=== PATIENT | male | born 1990 ===

== ENCOUNTER 2018-10-13 10:17 | Emergency (ER) | payer OTHER ==
[2018-10-13 10:22] VITALS: BMI 24.3
[2018-10-13 10:24] VITALS: PULSE 66
[2018-10-13] MEDS ORDERED: Sodium Chloride 0.9% 1,000 ML IV STA (11:11)
--- NOTE | 2018-10-13 11:13 | ED PDOC ---
HPI: Abdomen Time Seen by Provider: 10/13/18 11:02 Chief Complaint (Nursing): Abdominal Pain Chief Complaint (Provider): abdominal pain, nausea, diarrhea History Per: Patient, Chief Of Field Operations (Mir from [facility]) Onset/Duration Of Symptoms: Days (2) Severity: Moderate Location Of Pain/Discomfort: Epigastric, Periumbilical Quality Of Discomfort: Sharp Associated Symptoms: Nausea, Diarrhea, Loss Of Appetite. denies: Vomiting Exacerbating Factors: None Alleviating Factors: None Additional Complaint(s): 28yo male states in [place] several months ago had appendicitis and was given antibiotics for several days told "area would drain itself" denies any procedure, drain placement or surgery. Then went to [place] and did not followup. Now in [place] and c/o upper abd pain w nausea and loose stools x2 days. Denies fever, RLQ pain, melena or weakness. Past Medical History Reviewed: Historical Data, Nursing Documentation, Vital Signs Vital Signs: Last Vital Signs Temp 97.7 F 10/13/18 10:23 Pulse 66 10/13/18 10:23 Resp 17 10/13/18 10:23 BP 141/76 10/13/18 10:23 Pulse Ox 98 10/13/18 10:23 - Medical History Other PMH: takes no daily medications, hx ?appy as per HPI - Family History Family History: States: Unknown Family Hx - Social History Current smoker - smoking cessation education provided: No Alcohol: Occasional - Home Medications Home Medications: Ambulatory Orders Medication Instructions Recorded Ranitidine HCl [Zantac] 150 mg PO BID #20 tablet 10/13/18 - Allergies Allergies/Adverse Reactions: Allergies Allergy/AdvReac Type Severity Reaction Status Date / Time No Known Allergies Allergy Verified 10/13/18 10:40 Review of Systems ROS Statement: Except As Marked, All Systems Reviewed And Found Negative Constitutional: Negative for: Fever Cardiovascular: Negative for: Chest Pain Gastrointestinal: Positive for: Nausea, Abdominal Pain. Negative for: Vomiting, Diarrhea Genitourinary Male: Negative for: Dysuria Musculoskeletal: Negative for: Neck Pain Neurological: Negative for: Weakness, Numbness Psych: Negative for: Suicidal ideation Physical Exam - Reviewed Nursing Documentation Reviewed: Yes Vital Signs Reviewed: Yes - Physical Exam Appears: Positive for: Non-toxic Head Exam: Positive for: ATRAUMATIC, NORMAL INSPECTION, NORMOCEPHALIC Skin: Positive for: Normal Color, Warm, DRY Eye Exam: Positive for: EOMI, Normal appearance, PERRL ENT: Positive for: Normal ENT Inspection Neck: Positive for: Normal, Painless ROM Cardiovascular/Chest: Positive for: Regular Rate, Rhythm Respiratory: Positive for: CNT, Normal Breath Sounds Pulses-Radial (L): 2+ Pulses-Radial (R): 2+ Gastrointestinal/Abdominal: Positive for: Soft, Tenderness (+mild epigastric tenderness no RLQ tenderness). Negative for: Guarding, Rebound Back: Positive for: Normal Inspection Extremity: Positive for: Normal ROM. Negative for: Swelling Neurologic/Psych: Positive for: Alert, Oriented. Negative for: Motor/Sensory Deficits - Laboratory Results Result Diagrams: 10/13/18 11:20 10/13/18 11:20 - ECG O2 Sat by Pulse Oximetry: 98 Medical Decision Making Medical Decision Making: check labs and CT abd pelv. ?history of appendicitis several months ago but nonoperative, via photographers' model stated had ?abscess but treatment course seems substandard Accession No. 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 COMPARISON: No prior study available for comparison. TECHNIQUE: Contiguous helical/transaxial sections of the abdomen pelvis performed in standard fashion following intravenous injection of approximately 98 cc of Omnipaque 300 contrast material. Additional 2D sagittal and coronal reformats generated. Radiation dose: Total exam DLP = 319.69 mGy-cm. This CT exam was performed using one or more of the following dose reduction techniques: Automated exposure control, adjustment of the mA and/or kV according to patient size, and/or use of iterative reconstruction technique. FINDINGS: LOWER THORAX: Lung bases clear. No infiltrate effusion or basilar pneumothorax. LIVER: Liver is upper limits of normal measuring nearly 19 cm in CC dimension. Mild diffuse fatty hepatic infiltration felt be present. No. There is a vague small approximately 14 mm x 9.5 mm elliptical shaped area low attenuation inferior aspect right lobe liver best seen on axial series 3, image number [id number]. This could represent a small hemangioma. Follow-up CT scan at interval could be performed to assess stability.. Portal and splenic veins are opacified. GALLBLADDER AND BILE DUCTS: Gallbladder is physiologically distended. No evidence of intraluminal gallbladder calculi. PANCREAS: Unremarkable. No gross lesion or ductal dilatation. SPLEEN: Spleen exhibits normal size and attenuation pattern without mass collection or calcification. ADRENALS: No adrenal lesions. KIDNEYS AND URETERS: Kidneys demonstrate symmetric nephrograms. No evidence of nephrolithiasis or hydronephrosis. VASCULATURE: Unremarkable. No aortic aneurysm. No aortic atherosclerotic calcification or mural plaque present. BOWEL: Evaluation of the bowel is limited due to the lack of oral contrast material. Stomach is incompletely distended which is felt to account for thick-walled appearance however the possibility of a gastritis not excluded. Visualized loops of small bowel exhibit normal contour and caliber. No evidence of acute mechanical small bowel obstruction. Redundant sigmoid colon is distended with air. APPENDIX: There is a small appendicolith within the lumen of the appendix however no evidence to suggest acute appendicitis. PERITONEUM: Unremarkable. No free fluid. No free air. LYMPH NODES: Unremarkable. No enlarged lymph nodes. BLADDER: Urinary bladder is physiologically distended. No evidence of intraluminal urinary bladder calculi. REPRODUCTIVE: Prostate gland and seminal vesicles grossly unremarkable BONES: Very minor multilevel degenerative spondylosis of the lower thoracic and lumbar spine. There are no acute compression fractures nor retropulsed fragments. OTHER FINDINGS: None. IMPRESSION: Borderline hepatomegaly. Mild fatty hepatic infiltration. Vague area low attenuation inferior aspect right lobe liver for which follow-up CT scan recommended at interval to assess stability. This focus is too small to characterize though could represent small hemangioma. Small appendicoliths however no definitive radiographic evidence of acute appendicitis results d/w patient in [place] follow[place] outpatient clinic for additional liver imaging Rx zantac for symptoms Disposition - Clinical Impression Clinical Impression: Abdominal pain, Enlarged liver - Patient ED Disposition Is Patient to be Admitted: No Counseled Patient/Family Regarding: Studies Performed, Diagnosis, Need For Followup, Rx Given - Disposition Referrals: [facility] [Outside] Disposition: Routine/Home Disposition Time: 14:55 Condition: STABLE Additional Instructions: Followup with clinic for further testing on your liver. Return to ER for any worse or new symptoms. Prescriptions: Ranitidine HCl [Zantac] 150 mg PO BID #20 tablet Instructions: Acute Abdomen (Belly Pain), Adult (DC) Forms: [employer] (Jordanian) Print Language: NEPALESE
[2018-10-13 11:31] LABS: BASO # 0.1 K/uL (0.0-0.2); BASO % 1.2 % (0.0-2.0); EOS # 0.1 K/uL (0.0-0.7); HEMOGLOBIN 15.4 g/dL (12.0-18.0); LYMPH # 1.3 K/uL (1.0-4.3); LYMPH % 17.2 % (20.0-40.0); MEAN CELL VOLUME 88.5 fl (80.0-94.0); MEAN CORPUSCULAR HEMOGLOBIN 28.8 pg (27.0-31.0); MEAN CORPUSCULAR HGB CONC 32.5 g/dL (33.0-37.0); MEAN PLATELET VOLUME 9.3 fl (7.2-11.7); MONO # 0.6 K/uL (0.0-0.8); MONO % 8.4 % (0.0-10.0); NEUT # 5.5 K/uL (1.8-7.0); NEUT % 72.2 % (50.0-75.0); NRBC % 0.1 % (0.0-0.0); RBC 5.34 Mil/uL (4.40-5.90); RED CELL DISTRIBUTION WIDTH 14.9 % (11.5-14.5); WHITE BLOOD COUNT 7.6 K/uL (4.8-10.8)
[2018-10-13 11:37] LABS: ALB/GLOB RATIO 1.2 (1.0-2.1); ALBUMIN 4.8 g/dL (3.5-5.0); ALT/SGPT 35 U/L (21-72); AST/SGOT 24 U/L (17-59); BLOOD UREA NITROGEN 17 mg/dl (9-20); CALCIUM 9.3 mg/dL (8.4-10.2); GFR NON-AFRICAN AMERICAN > 60
[2018-10-13 11:41] LABS: URINE BILIRUBIN NEGATIVE (NEGATIVE); URINE BLOOD SMALL (NEGATIVE); URINE CLARITY CLEAR (Clear); URINE COLOR YELLOW (YELLOW); URINE GLUCOSE (UA) NEG (NEGATIVE); URINE LEUKOCYTE ESTERASE NEG Leu/uL (Negative); URINE PROTEIN NEGATIVE (NEGATIVE); URINE UROBILINOGEN 0.2-1.0 mg/dL (0.2-1.0)
[2018-10-13] MEDS ORDERED: Iohexol 300 100 ML IJ ONE (11:54)
[2018-10-13] MEDS ORDERED: Sodium Chloride 0.9% 50 ML IV ONE (11:54)
--- NOTE | 2018-10-13 14:48 | CT ---
Date of service: 10/13/2018 PROCEDURE: CT Abdomen and Pelvis HISTORY: History of non operative appendicitis 3 months ago narrow upper abdominal pain. COMPARISON: No prior study available for comparison. TECHNIQUE: Contiguous helical/transaxial sections of the abdomen pelvis performed in standard fashion following intravenous injection of approximately 98 cc of Omnipaque 300 contrast material. Additional 2D sagittal and coronal reformats generated. Radiation dose: Total exam DLP = 319.69 mGy-cm. This CT exam was performed using one or more of the following dose reduction techniques: Automated exposure control, adjustment of the mA and/or kV according to patient size, and/or use of iterative reconstruction technique. FINDINGS: LOWER THORAX: Lung bases clear. No infiltrate effusion or basilar pneumothorax. LIVER: Liver is upper limits of normal measuring nearly 19 cm in CC dimension. Mild diffuse fatty hepatic infiltration felt be present. No. There is a vague small approximately 14 mm x 9.5 mm elliptical shaped area low attenuation inferior aspect right lobe liver best seen on axial series 3, image number [id number]. This could represent a small hemangioma. Follow-up CT scan at interval could be performed to assess stability.. Portal and splenic veins are opacified. GALLBLADDER AND BILE DUCTS: Gallbladder is physiologically distended. No evidence of intraluminal gallbladder calculi. PANCREAS: Unremarkable. No gross lesion or ductal dilatation. SPLEEN: Spleen exhibits normal size and attenuation pattern without mass collection or calcification. ADRENALS: No adrenal lesions. KIDNEYS AND URETERS: Kidneys demonstrate symmetric nephrograms. No evidence of nephrolithiasis or hydronephrosis. VASCULATURE: Unremarkable. No aortic aneurysm. No aortic atherosclerotic calcification or mural plaque present. BOWEL: Evaluation of the bowel is limited due to the lack of oral contrast material. Stomach is incompletely distended which is felt to account for thick-walled appearance however the possibility of a gastritis not excluded. Visualized loops of small bowel exhibit normal contour and caliber. No evidence of acute mechanical small bowel obstruction. Redundant sigmoid colon is distended with air. APPENDIX: There is a small appendicolith within the lumen of the appendix however no evidence to suggest acute appendicitis. PERITONEUM: Unremarkable. No free fluid. No free air. LYMPH NODES: Unremarkable. No enlarged lymph nodes. BLADDER: Urinary bladder is physiologically distended. No evidence of intraluminal urinary bladder calculi. REPRODUCTIVE: Prostate gland and seminal vesicles grossly unremarkable BONES: Very minor multilevel degenerative spondylosis of the lower thoracic and lumbar spine. There are no acute compression fractures nor retropulsed fragments. OTHER FINDINGS: None. IMPRESSION: Borderline hepatomegaly. Mild fatty hepatic infiltration. Vague area low attenuation inferior aspect right lobe liver for which follow-up CT scan recommended at interval to assess stability. This focus is too small to characterize though could represent small hemangioma. Small appendicoliths however no definitive radiographic evidence of acute appendicitis
[2018-10-13 16:18] VITALS: BP 132/68; RESP 18; TEMP 98; O2SAT 100
--- NOTE | 2018-10-14 21:41 | CARD ---
APPROVED REPORT Date of service: 10/13/2018 EKG Measurement Heart [id number] ID [id number] <Conclusion> Normal sinus rhythm Normal Electrocardiogram
== END 2018-10-13 15:45 | disposition home or self-care (01) ==
LOC: H.ER 10:17
DX: R10.13 Epigastric pain (principal); R16.0 Hepatomegaly, not elsewhere classified
CPT/HCPCS: 74177; 80053; 81003; 85025; 93005; 99283; J7030; Q9967

== ENCOUNTER 2019-02-14 14:08 | Emergency (ER) | payer OTHER ==
[2019-02-14 14:08] VITALS: BMI 24.3
[2019-02-14 14:15] VITALS: RESP 16
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
--- NOTE | 2019-02-14 15:20 | RAD ---
Date of service: 2019-02-14 14:28:55 PROCEDURE: Left Knee Radiographs. HISTORY: Pain. COMPARISON: None. TECHNIQUE: Please note that three views of both the right and left knee were performed. FINDINGS: BONES: Normal. No fracture. JOINTS: Normal. No osteoarthritis. JOINT EFFUSION: None. OTHER FINDINGS: None. IMPRESSION: Normal radiographs of the right and left knee.
[2019-02-14 16:01] VITALS: BP 152/62; PULSE 69; TEMP 98.7
[2019-02-14 17:58] VITALS: O2SAT 99
== END 2019-02-14 15:55 | disposition home or self-care (01) ==
LOC: H.ER 14:08
DX: M25.562 Pain in left knee (principal)